=== PATIENT | female | born 1960 | race Caucasian/White ===

== ENCOUNTER 2023-08-26 11:59 | Outpatient (RCR) | payer MEDICARE, SELFPAY | END 2023-08-26 23:59 | disposition home or self-care (01) | LOC: ROT 11:59 | PROVIDERS: ATTENDING PHYSICIAN Orthopaedic Surgery Hand Surgery; FAMILY PHYSICIAN Family Medicine | DX: S52.022D Displaced fracture of olecranon process without intraarticular extension of left ulna, subsequent encounter for closed fracture with routine healing (principal); Z73.6 Limitation of activities due to disability | CPT/HCPCS: 97010; 97110; 97140; 97166; 97530 ==

== ENCOUNTER 2023-09-11 12:59 | Outpatient (RCR) | payer MEDICARE, SELFPAY | END 2023-09-11 23:59 | disposition home or self-care (01) | LOC: ROT 12:59 | PROVIDERS: ATTENDING PHYSICIAN Orthopaedic Surgery Hand Surgery; FAMILY PHYSICIAN Family Medicine | DX: Z47.89 Encounter for other orthopedic aftercare (principal); S52.022D Displaced fracture of olecranon process without intraarticular extension of left ulna, subsequent encounter for closed fracture with routine healing; Z73.6 Limitation of activities due to disability | CPT/HCPCS: 97010; 97110; 97140; 97530 ==

== ENCOUNTER → 2024-03-08 14:15 | Outpatient (REF) | payer MEDICARE, SELFPAY | LOC: WDC 14:15 | PROVIDERS: ATTENDING PHYSICIAN Family Medicine Geriatric Medicine; FAMILY PHYSICIAN Family Medicine | DX: Z12.31 Encounter for screening mammogram for malignant neoplasm of breast (principal); Z85.3 Personal history of malignant neoplasm of breast | CPT/HCPCS: 77063; 77067 ==

== ENCOUNTER 2024-10-07 08:45 | Outpatient (RCR) | payer MEDICARE, SELFPAY | END 2024-10-07 23:59 | disposition home or self-care (01) | LOC: RPT 08:45 | PROVIDERS: ATTENDING PHYSICIAN Obstetrics & Gynecology; FAMILY PHYSICIAN Family Medicine | DX: N95.8 Other specified menopausal and perimenopausal disorders (principal); N81.2 Incomplete uterovaginal prolapse; Z73.6 Limitation of activities due to disability; M62.81 Muscle weakness (generalized); N81.6 Rectocele; N81.10 Cystocele, unspecified | CPT/HCPCS: 97163; 97530 ==

== ENCOUNTER 2024-11-22 13:01 | Outpatient (RCR) | payer MEDICARE, SELFPAY | END 2024-11-22 23:59 | disposition home or self-care (01) | LOC: RPT 13:01 | PROVIDERS: ATTENDING PHYSICIAN Obstetrics & Gynecology; FAMILY PHYSICIAN Family Medicine | DX: N95.8 Other specified menopausal and perimenopausal disorders (principal); N81.2 Incomplete uterovaginal prolapse; Z73.6 Limitation of activities due to disability; M62.81 Muscle weakness (generalized); N81.6 Rectocele; N81.10 Cystocele, unspecified | CPT/HCPCS: 97014; 97110; 97112; 97530 ==

== ENCOUNTER 2024-12-06 12:58 | Outpatient (RCR) | payer MEDICARE, SELFPAY | END 2024-12-06 23:59 | disposition home or self-care (01) | LOC: RPT 12:58 | PROVIDERS: ATTENDING PHYSICIAN Obstetrics & Gynecology; FAMILY PHYSICIAN Family Medicine | DX: N95.8 Other specified menopausal and perimenopausal disorders (principal); N81.2 Incomplete uterovaginal prolapse; Z73.6 Limitation of activities due to disability; M62.81 Muscle weakness (generalized); N81.6 Rectocele; N81.10 Cystocele, unspecified | CPT/HCPCS: 97110; 97112; 97140; 97530 ==

== ENCOUNTER 2025-01-17 13:02 | Outpatient (RCR) | payer MEDICARE, SELFPAY | END 2025-01-17 23:59 | disposition home or self-care (01) | LOC: RPT 13:02 | PROVIDERS: ATTENDING PHYSICIAN Obstetrics & Gynecology; FAMILY PHYSICIAN Family Medicine | DX: N95.8 Other specified menopausal and perimenopausal disorders (principal); N81.2 Incomplete uterovaginal prolapse; Z73.6 Limitation of activities due to disability; M62.81 Muscle weakness (generalized); N81.6 Rectocele; N81.10 Cystocele, unspecified | CPT/HCPCS: 97014; 97110; 97112; 97530 ==

== ENCOUNTER → 2025-02-03 13:53 | Outpatient (REF) | payer MEDICARE, SELFPAY | LOC: WDC 13:53 | PROVIDERS: ATTENDING PHYSICIAN Family Medicine Geriatric Medicine; FAMILY PHYSICIAN Family Medicine | DX: R92.333 Mammographic heterogeneous density, bilateral breasts (principal) | CPT/HCPCS: 76641 ==

== ENCOUNTER 2025-02-15 14:17 | Outpatient (RCR) | payer MEDICARE, SELFPAY | END 2025-02-23 11:36 | disposition home or self-care (01) | LOC: RPT 14:17 | PROVIDERS: ATTENDING PHYSICIAN Obstetrics & Gynecology; FAMILY PHYSICIAN Family Medicine | DX: N95.8 Other specified menopausal and perimenopausal disorders (principal); N81.2 Incomplete uterovaginal prolapse; Z73.6 Limitation of activities due to disability; M62.81 Muscle weakness (generalized); N81.6 Rectocele; N81.10 Cystocele, unspecified | CPT/HCPCS: 97110; 97112; 97530 ==

== ENCOUNTER → 2025-03-21 15:57 | Outpatient (REF) | payer MEDICARE, SELFPAY | LOC: WDC 15:57 | PROVIDERS: ATTENDING PHYSICIAN Family Medicine Geriatric Medicine; FAMILY PHYSICIAN Family Medicine | DX: Z12.31 Encounter for screening mammogram for malignant neoplasm of breast (principal) | CPT/HCPCS: 77063; 77067 ==